=== PATIENT | female | born 1980 | race Caucasian/White ===

== ENCOUNTER 2016-10-29 07:00 | Day surgery (SDC) | payer BC ==
[2016-10-25 09:14] LABS: BASOPHILS 0.2 %; BASOPHILS ABSOLUTE 0.02 10/3/uL (0.0-0.16); EOSINOPHILS 1.9 %; EOSINOPHILS ABSOLUTE 0.25 10/3/uL (0.0-0.53); HEMATOCRIT 37.3 % (36.0-48.0); HEMOGLOBIN 11.9 g/dL (12.0-16.0); IMMATURE GRANULOCYTES 0.3 %; IMMATURE GRANULOCYTES ABSOLUTE 0.04 10/3/uL (0.0-0.11); LYMPHOCYTES ABSOLUTE 4.31 10/3/uL (0.67-4.30); MEAN CORPUS HGB CONC 31.9 g/dL (32.0-36.0); MEAN CORPUSCULAR HEMOGLOB 26.2 pg (26.0-34.0); MEAN CORPUSCULAR VOLUME 82.2 fL (80-100); MEAN PLATELET VOLUME 9.1 fL (9.2-13.0); MONOCYTES 5.8 %; MONOCYTES ABSOLUTE 0.76 10/3/uL (0.21-1.20); NEUTROPHILS 58.8 %; PLATELET COUNT 374 10/3/uL (150-400); RBC DISTRIBUTION WIDTH 17.1 % (12.0-16.0); RED CELL COUNT 4.54 10/6/uL (4.0-5.6); WHITE BLOOD CELLS 13.1 10/3/uL (4.5-10.5)
[2016-10-25 09:16] LABS: MANUAL DIFF NO %
[2016-10-25 09:31] LABS: ALBUMIN 3.4 G/DL (3.5-5.0); ALKALINE PHOSPHATASE 74 U/L (45-117); BUN (BLOOD UREA NITROGEN) 14 MG/DL (6-23); CALCIUM, SERUM 8.8 MG/DL (8.5-10.4); CHLORIDE, SERUM 105 MMOL/L (96-112); CO2 (CARBON DIOXIDE) 25 MMOL/L (24-34); CREATININE 0.75 MG/DL (0.55-1.02); GFR AFRICAN AMERICAN 117 ML/MIN (>=60); GFR NON AFRICAN AMERICAN 101 ML/MIN (>=60); GLOBULIN 3.3 G/DL (2.5-4.1); GLUCOSE, SERUM 94 MG/DL (60-99); POTASSIUM, SERUM 4.2 MMOL/L (3.5-5.3); SGOT(AST) 31 U/L (5-40); SGPT(ALT) 53 U/L (5-65); SODIUM, SERUM 142 MMOL/L (135-148); TOTAL BILIRUBIN 0.3 MG/DL (0-1.2); TOTAL PROTEIN 6.7 G/DL (6.0-8.5)
--- NOTE | ~2016-10-29 | OP ---
Record Of Operation [facility] [address] [place]. [address] NAME: TAMAR DELEON : 76 STATUS : [facility]#: [id number] AGE: 36 ADM/REG DATE : 10/29/16 MR#: [id number] REPORT SERV DATE: 10/30/16 DICTATED BY: JOSE WANG DATE: 10/30/16 REPORT STATUS : Draft TRANSCRIBED BY: MODL DATE: 10/30/16 DATE OF PROCEDURE: 10/29/2016 PREOPERATIVE DIAGNOSES: 1. Symptomatic cholelithiasis. 2. Abnormal liver enzymes. POSTOPERATIVE DIAGNOSES: 1. Symptomatic cholelithiasis. 2. Abnormal liver enzymes. OPERATIONS PERFORMED: 1. Laparoscopic cholecystectomy. 2. Laparoscopic liver biopsy. SURGEON: Jose Wang M.D. ANESTHESIA: General. BOX FINISHER: Iain Hong MD. ESTIMATED BLOOD LOSS: Less than 10 mL. IV FLUIDS: Adequate. INDICATION FOR PROCEDURE: Ms Deleon is a 36-year-old morbidly obese white female, who has developed symptomatic cholelithiasis. She has been seen by Dr. James Fu and evaluated. He feels like the liver biopsies are indicated as well as cholecystectomy. I reviewed her data and concurred. DESCRIPTION OF OPERATION: After appropriate sedation, the patient was prepped and draped in proper sterile fashion. A 10-mm Optiview trocar was used to enter the abdomen in the right upper quadrant. The abdomen was then insufflated. We then placed two right lateral 5-mm trocars and a right lower quadrant 5-mm trocar under direct visualization. Due to her morbid obesity and the weight, this was quite difficult operation. The gallbladder was grasped and taken cephalad. She had a very heavy liver. We incised the peritoneum on both sides of the gallbladder to help with mobilization. We dissected out the cystic artery and cystic duct well as posterior to the gallbladder. We therefore able to demonstrate the critical view of safety. The cystic artery and duct were ligated in between hemoclips. The gallbladder was removed from the gallbladder fossa using hook cautery and brought out through the subxiphoid trocar site. We replaced the trocar. We visualized our liver bed. Our clips were intact. There was no evidence of bile leak or bleeding. At this point, we turned our attention towards the liver biopsy. The skin was anesthetized with 1% lidocaine. A small stab incision was made, and a 14-gauge biopsy needle was deployed multiple times into the dome of the liver under direct visualization. Multiple samples were obtained. We then cauterized the dome of the liver for hemostasis. At this point, we used a 0 Vicryl Record Of Operation [address] [address] NAME: TAMAR DELEON : 76 STATUS : [facility]#: [id number] AGE: 36 ADM/REG DATE : 10/29/16 MR#: [id number] REPORT SERV DATE: 10/30/16 DICTATED BY: JOSE WANG DATE: 10/30/16 REPORT STATUS : Draft TRANSCRIBED BY: ALENA DATE: 10/30/16 with a suture passer to close the subxiphoid trocar site. We removed the remaining trocars under direct visualization. There was no bleeding from the abdominal wall. The abdomen was then desufflated. The skin was closed using interrupted 3-0 Vicryl suture. Steri-Strips and dressings were then placed. The patient was taken to the recovery room in satisfactory condition. CRISTEL/ALENA Jose Wang M.D. / [id number] CC: Juan Cavazos M.D. Chirag Patel, M.D.
[~2016-10-29 07:00] MED LIST: ALBUTEROL; CO Q-10100 MG PO; DIOVAN320 MG PO; DULERA 100 MCG/13 GM INH; DULERA 200 MCG/13 GM INH; DUONEB INH; GLUCOPHAGE1000 MG PO; OMNICEF300 PO; ORTHO-NOVUM1 TAB PO; PROAIR HFA INH; PROTONIX PO; SYNTHROID175 MCG PO; VITAMIN D2000 UNIT PO; VITE PO; [UNRECOGNIZED DRUG - OTHER]
== END 2016-10-29 16:13 | disposition home or self-care (01) ==
LOC: SDC 07:00
PROVIDERS: Specialist
PROC: 0FT44ZZ Resection of Gallbladder, Percutaneous Endoscopic Approach (ICD-10-PCS; principal; 2016-10-29 08:00)
PROC: 0FB04ZX Excision of Liver, Percutaneous Endoscopic Approach, Diagnostic (ICD-10-PCS; 2016-10-29 08:00)
DX: K80.20 Calculus of gallbladder without cholecystitis without obstruction (principal); G47.33 Obstructive sleep apnea (adult) (pediatric); E11.9 Type 2 diabetes mellitus without complications; I10 Essential (primary) hypertension; E66.01 Morbid (severe) obesity due to excess calories; Z68.45 Body mass index [BMI] 70 or greater, adult; J45.909 Unspecified asthma, uncomplicated; K21.9 Gastro-esophageal reflux disease without esophagitis; N39.0 Urinary tract infection, site not specified; E03.9 Hypothyroidism, unspecified; Z90.89 Acquired absence of other organs; Z98.890 Other specified postprocedural states
CPT/HCPCS: 80053; 82962; 84703; 85025; 88304; 88307; 88313; 93005; A9270-GY; J0690; J2250; J2405; J2550; J2710; J3010; Q9967